=== PATIENT | female | born 1985 | race American Indian/Alaskan Native ===

== ENCOUNTER 2020-12-15 08:49 | Emergency (ER) | payer SELFPAY ==
[2020-12-15] MEDS ORDERED: ACETAMINOPHEN 325 MG TAB PO ONE (09:22)
[2020-12-15] MEDS ORDERED: dexAMETHasone 4 MG/ML VIAL IV ONE (11:00)
[2020-12-15] MEDS ORDERED: SODIUM CHLORIDE 0.9% 1000 ML 1,000 ML IV ONE (11:00)
[2020-12-15] MEDS ORDERED: KETOROLAC 30 MG/1 ML INJ IV ONE (11:00)
--- NOTE | 2020-12-15 11:01 | Emergency Department Report ---
- General Chief Complaint: Dyspnea/Respdistress Stated Complaint: HARD TIME BREATHING PUI?: Yes Time Seen by Provider: 12/15/20 10:53 Source: patient Mode of arrival: Ambulatory Limitations: No Limitations - History of Present Illness Initial Comments: 35-year-old female who denies any significant past medical history presents to the ER today with complaints of flulike/Covid-like symptoms. Patient states that he started to feel bad last week . She did take a rapid Covid test at the time and it was negative. Patient reports productive cough, with associated anterior chest pain when she coughs, shortness of breath, wheezing, chills, intermittent diaphoresis, generalized body aches, rhinorrhea, nasal congestion and diarrhea. She denies any apparent fever at home. She has been taking DayQuil, NyQuil as well as Tylenol to try to help her symptoms without much relief. Patient denies any recent travel or any recent ill contacts. She denies tobacco use. She did not get any of the COVID-19 vaccines. She is currently on her menstrual cycle. MD Complaint: cough, rhinorrhea, nasal congestion, other (Flulike symptoms) - Related Data Previous Rx's Medication Instructions Recorded Last Taken Type Albuterol Mdi (or & Nicu Only) 2 puff IH QID PRN #8.5 gram 12/15/20 Unknown Rx [ProAir HFA Inhaler] Azithromycin [Zithromax Z-DARCY] 250 mg PO DAILY #1 package 12/15/20 Unknown Rx Ibuprofen [Motrin] 800 mg PO Q8HR PRN #30 tablet 12/15/20 Unknown Rx Allergies Allergy/AdvReac Type Severity Reaction Status Date / Time No Known Allergies Allergy Verified 12/15/20 13:22 ED Review of Systems ROS: Stated complaint: HARD TIME BREATHING Other details as noted in HPI Comment: All other systems reviewed and negative Constitutional: denies: chills, fever Eyes: denies: eye pain, eye discharge, vision change ENT: congestion, other (Rhinorrhea). denies: ear pain, throat pain, dental p ain, hearing loss, epistaxis Respiratory: cough, shortness of breath, wheezing Cardiovascular: chest pain (With cough) Gastrointestinal: diarrhea. denies: abdominal pain, nausea, vomiting, constipation, hematemesis, melena, hematochezia Genitourinary: denies: urgency, dysuria, frequency, hematuria, discharge, abnormal menses, dyspareunia Musculoskeletal: myalgia Skin: denies: rash, lesions, change in color, change in hair/nails, pruritus Neurological: headache. denies: weakness, paresthesias, abnormal gait, vertigo Psychiatric: denies: anxiety, depression, auditory hallucinations, visual josette lucinations, homicidal thoughts, suicidal thoughts Hematological/Lymphatic: denies: easy bleeding, easy bruising ED Past Medical Hx - Past Medical History Previous Medical History?: No - Surgical History Past Surgical History?: No - Medications Home Medications: Home Medications Medication Instructions Recorded Confirmed Last Taken Type Albuterol Mdi (or & Nicu Only) 2 puff IH QID PRN #8.5 gram 12/15/20 Unknown Rx [ProAir HFA Inhaler] Azithromycin [Zithromax Z-DARCY] 250 mg PO DAILY #1 package 12/15/20 Unknown Rx Ibuprofen [Motrin] 800 mg PO Q8HR PRN #30 tablet 12/15/20 Unknown Rx ED Physical Exam - General Limitations: No Limitations General appearance: alert, in no apparent distress, other (Mildly ill-appearing but otherwise not toxic) - Head Head exam: Present: atraumatic, normocephalic, normal inspection - Eye Eye exam: Present: normal appearance, PERRL, EOMI Pupils: Present: normal accommodation - Neck Neck exam: Present: normal inspection, full ROM. Absent: meningismus - Respiratory Respiratory exam: Present: normal lung sounds bilaterally. Absent: respiratory distress, wheezes, rales, rhonchi - Cardiovascular Cardiovascular Exam: Present: regular rate, normal rhythm, normal heart sounds - GI/Abdominal GI/Abdominal exam: Present: soft. Absent: distended, tenderness, guarding, rebound - Neurological Exam Neurological exam: Present: alert, oriented X3, CN II-XII intact, normal gait - Psychiatric Psychiatric exam: Present: normal affect, normal mood - Skin Skin exam: Present: intact, normal color ED Course Vital Signs 12/15/20 12/15/20 12/15/20 09:21 13:06 13:15 Temperature 100.3 F H 98.6 F Pulse Rate 103 H 80 Respiratory 20 12 16 Rate Blood Pressure 127/61 Blood Pressure 97/47 [Right] O2 Sat by Pulse 96 99 99 Oximetry 12/15/20 14:39 Temperature Pulse Rate 80 Respiratory 16 Rate Blood Pressure Blood Pressure 108/69 [Right] O2 Sat by Pulse 98 Oximetry ED Medical Decision Making - Lab Data Result diagrams: 12/15/20 12:33 12/15/20 12:33 - Radiology Data Radiology results: report reviewed Patient: ZOEY SUAREZ MR#: [id number] 72 : 1985 Acct:[id number] Age/Sex: 35 / F ADM Date: 12/15/20 Loc: ED Attending Dr: Ordering Physician: ANA BIRD Date of Service: 12/15/20 Procedure(s): XR chest routine 2V Accession Number(s): [id number] cc: ANA BIRD Fluoro Time In Minutes: XR chest routine 2V INDICATION / CLINICAL INFORMATION: cough/sob. COMPARISON: None available. FINDINGS: SUPPORT DEVICES: None. HEART /PULMONARY VASCULATURE: No significant abnormality. LUNGS / PLEURA: There is airspace consolidation of the right lower lobe. Left lung is clear. No sizable pleural effusion. No pneumothorax. ADDITIONAL FINDINGS: No significant additional findings. IMPRESSION: Right lower lobe pneumonia. Signer Name: Luciana Arroyo MD Signed: 12/15/2020 11:28 AM Workstation Name: [id number] Transcribed By: JS Dictated By: LUCIANA ARROYO MD Electronically Authenticated By: LUCIANA ARROYO MD Signed Date/Time: 12/15/201127 DD/ 27 TD/TT: - Medical Decision Making Pt temp and HR improved with meds and fluids. Her repeated vitals have remained stable. She was ambulated and maintained an oxygen saturation of 98% on RA and did not appear to be in any respiratory distress. She ambulated with normal gait. All labs were unremarkable Her CXR showed consolidated right lower lobe pneumonia, not quite typical of COVID and concerning for more bacterial pneumonia. Discussed all results with patient. She will be started on zithromax, and given albuterol MDI. I did recommend getting a another COVID 19 test but this time PCR test just in case her first test was false negative. At this time there is no indication for admission. She is not toxic or severely ill appearing. Discussed worsening signs and symptoms that should have her return immediately to ED. Pt Pt expressed understanding of all instructions and agreed with plan. She was stable at time of discharge. Critical care attestation.: If time is entered above; I have spent that time in minutes in the direct care of this critically ill patient, excluding procedure time. ED Disposition Clinical Impression: Pneumonia Disposition: 01 HOME / SELF CARE / HOMELESS Is pt being admited?: No Does the pt Need Aspirin: No Condition: Stable Instructions: Community-Acquired Pneumonia, Adult, [id number], Bacterial Pneumonia (ED) Additional Instructions: Take the zithromax as prescribed and use the albuterol MDI as prescribed. Take the motrin and or tylenol for any pain or fever. Continue to drink lots of flui ds. I would recommend taking another covid 19 test today or tomorrow. Follow up with your PCP but return to ED if your symptoms changes or worsens in anyway. Prescriptions: Ibuprofen [Motrin] 800 mg PO Q8HR PRN #30 tablet PRN Reason: pain Albuterol Mdi (or & Nicu Only) [ProAir HFA Inhaler] 2 puff IH QID PRN #8.5 gram PRN Reason: Shortness Of Breath Azithromycin [Zithromax Z-DARCY] 250 mg PO DAILY #1 package Referrals: JUSTICE DANIELS MD [Staff Physician] - 3-5 Days [facility] [Provider Group] - 3-5 Days Forms: Work/School Release Form(ED) Time of Disposition: 13:23
--- NOTE | 2020-12-15 11:33 | XRay Report ---
XR chest routine 2V INDICATION / CLINICAL INFORMATION: cough/sob. COMPARISON: None available. FINDINGS: SUPPORT DEVICES: None. HEART /PULMONARY VASCULATURE: No significant abnormality. LUNGS / PLEURA: There is airspace consolidation of the right lower lobe. Left lung is clear. No sizab le pleural effusion. No pneumothorax. ADDITIONAL FINDINGS: No significant additional findings. IMPRESSION: Right lower lobe pneumonia. Signer Name: Durga Arroyo MD Signed: 12/15/2020 11:28 AM Workstation Name: [id number]
[2020-12-15] MEDS ORDERED: AZITHROMYCIN 250 MG TAB PO ONE (12:24)
[2020-12-15 12:49] LABS: Basophils % (Auto) 0.4 % (0.0-1.8); Hematocrit 35.2 % (30.3-42.9); Hemoglobin 11.8 gm/dl (10.1-14.3); Lymphocytes # (Auto) 1.3 K/mm3 (1.2-5.4); Lymphocytes % (Auto) 41.2 % (13.4-35.0); Mean Corpuscular HGB Conc 34 % (30-34); Mean Corpuscular Volume 86 fl (79-97); Monocytes # (Auto) 0.2 K/mm3 (0.0-0.8); Platelet Count 179 K/mm3 (140-440); Red Blood Count 4.08 M/mm3 (3.65-5.03); Red Cell Distribution Width 14.5 % (13.2-15.2)
[2020-12-15 13:07] LABS: Alanine Aminotransferase 25 units/L (7-56); Albumin 3.7 g/dL (3.9-5); BUN/Creatinine Ratio 10; Blood Urea Nitrogen 8 mg/dL (7-17); Calcium 8.4 mg/dL (8.4-10.2); Hemolysis Index 2
[2020-12-15 16:53] VITALS: BP 108/69
== END 2020-12-15 14:39 | disposition home or self-care (01) ==
LOC: ED 08:49
DX: J18.9 Pneumonia, unspecified organism (principal); Z79.899 Other long term (current) drug therapy
CPT/HCPCS: 36415; 71046; 80053; 85025; 99284; J1885; J7030